=== PATIENT | female | born 1985 | race Two or more races ===

== ENCOUNTER 2022-11-23 09:07 | Outpatient (AMB) | payer OTHER, SELFPAY ==
[2022-11-23 09:12] VITALS: BP 118/74; PULSE 59; TEMP 36.6; O2SAT 99; BMI 40.4
--- NOTE | 2022-11-23 09:12 | MHC.OFFVIS ---
Intake Vital Signs 11/23/22 09:12 Height 5 ft 8 in Weight 265 lb 14.04 oz BMI 40.4 BP 118/74 Blood Pressure Location Rt brachial Position Sitting Pulse 59 Pulse Source Pulse Oximeter Temp 97.8 F Temp Source Skin Pulse Oximetry (%) 99 Intake Visit Reasons: Fibromyalgia Intake Note: New pt presents today for FM consult. 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: No Accompanied by: Self / Same As Patient Allergies No Known Allergies Allergy (Verified 11/23/22 09:14) Medication List - Last Reconciled 11/23/22 by Wade Penn MD albuterol sulfate 90 mcg/actuation (ProAir HFA) 2 puffs inhalation Q6H PRN cholecalciferol (vitamin D3) (Vitamin D3) 50 mcg PO DAILY clobetasol 0.05% 0.5 mL topical BID duloxetine 30 mg PO DAILY etonogestrel (Nexplanon) subdermal ONCE ketoconazole 2% 1 appl topical 2XW omeprazole 20 mg PO BID phentermine 37.5 mg PO QAM tizanidine 4 mg PO Q8H PRN HPI HPI Comments History of Present Illness Details This is a 37-year-old female with a past medical history of psoriasis who presents for evaluation of diffuse pain. Patient states that she was diagnosed with psoriasis more than 10 years ago. It was on her scalp. It was treated with ketoconazole shampoo. She currently does not have any psoriasis patches. She mentions that she has had multiple pains for 4-5 years however since after her bariatric surgery a year ago the pain has become more intense. It affects her elbows, hands, back. The pain is usually worse when she is sitting down, better with activity. Denies any swollen joints. Denies any significant morning stiffness. She is unaware of any family history of autoimmune rheumatic disease as she is adopted. She mentions that she was 400 lb and she had a gastric sleeve surgery last year and lost 130 lb. She has history of obstructive sleep apnea and used to have a CPAP machine. She states that even after her weight loss she continued to have sleep apnea on her sleep study. She mentions however that her machine needs to be checked. She is not using a CPAP machine currently. Patient states that she goes to the gym 5-6 days a week and does different exercises including treadmill, lifting weights and aquatherapy. [facility] Medical History (Updated 11/23/22 @ 09:57 by Wade Penn MD) Anxiety disorder Asthma Depressive disorder Eating disorder Fibromyalgia Migraine Nonalcoholic steatohepatitis RAMIRO (obstructive sleep apnea) Psoriasis Surgical History History of carpal tunnel surgery Hx of tooth extraction S/P gastric sleeve procedure Family History Brother Mental disorder Son No problems noted. Family/Other Medical history unknown Social History Household Members: Children Alcohol intake: current Alcohol intake frequency: holidays/special occasions only Patient Tobacco Use Status: Never used Tobacco Use of substances other than those prescribed or required for medical reasons: Yes Substance Use Type: Marijuana Current occupational status: employed Current occupation: Director food mobile driver elderly facility Female Reproductive History Menstrual Total pregnancies: 4 Full term: 4 Number of Living Children: 3 (1 son 3 wks SIDS ) Review of Systems Const Reports fatigue, Reports headache(s) and Reports weakness ENT Reports headache(s) GI Reports constipation Musc Reports arthralgias and Reports stiffness Skin/Breast Reports dry skin Neuro Reports headache(s) and Reports weakness Psych Reports anxiety Endo Reports fatigue Physical Exam Vital Signs: Last Vital Signs Temp 97.8 F 11/23/22 09:12 Pulse 59 11/23/22 09:12 BP 118/74 11/23/22 09:12 Pulse Ox 99 11/23/22 09:12 BMI result Body Mass Index 40.4 Const General: cooperative, healthy appearing and comfortable Nutritional Appearance: obese morbidly obese Orientation/consciousness: patient oriented x3 Limitations: no limitations HEENT Head: Yes normocephalic and Yes atraumatic Mouth: moist mucous membranes Resp Effort & Inspection: normal respiratory effort and able to speak in complete sentences Auscultation: clear to auscultation bilaterally Cardio Rate: regular rate Rhythm: regular rhythm Skin Other: No psoriasis patches noted Neuro General: patient oriented x3 Extrem Other: No active synovitis Few fibromyalgia tender points No nail pitting Normal nailfold capillaroscopy Asiya test 10-15 cm Some low back discomfort with straight leg raise test bilaterally Assessment & Plan Assessment & Plan (1) Fibromyalgia: Code(s): M79.7 - Fibromyalgia Plan: This is a 37-year-old female with a past medical history of psoriasis who presents for evaluation of diffuse pain. I do not see any signs of autoimmune rheumatic disease upon evaluation. Clinical picture consistent with fibromyalgia Discussed management of fibromyalgia with patient. Is a noninflammatory, non-autoimmune central afferent processing disorder leading to a diffuse pain syndrome. I suggested that patient try to address her underlying psychiatric issues, anxiety/depression. She is currently on duloxetine 30 mg daily prescribed by PCP. I suggested evaluation by a therapist and/or a psychiatrist. Advised patient to use her CPAP regularly. Try to follow sleep hygiene practices. Discuss CBT for sleep with psychotherapist. Patient is already active at the gym, goes most days of the week does treadmill, weightlifting and adequate therapy. I suggested potentially adding more low-impact exercises such as stretching or yoga. Discuss with PCP, consider increasing Cymbalta to 60 mg nightly. Follow-up in 1 year. Discussed with patient symptoms and signs that are suggestive of inflammatory arthritis, come back to clinic sooner she develops such symptoms Coding Level of Care Code New Pt Level 3 (58556) Diagnoses Fibromyalgia M79.7
== END 2022-11-23 10:23 | disposition home or self-care (01) ==
PROVIDERS: PCP Internal Medicine; Referring Provider Internal Medicine; Visit Provider Student in an Organized Health Care Education/Training Program
DX: M79.7 Fibromyalgia (principal)
CPT/HCPCS: 99203

== ENCOUNTER → 2022-11-23 09:07 | Outpatient (BNVA) | payer OTHER, SELFPAY | PROVIDERS: PCP Internal Medicine; Visit Provider Student in an Organized Health Care Education/Training Program | DX: M79.7 Fibromyalgia (principal) | CPT/HCPCS: 99202 ==